=== PATIENT | male | born 1950 | race Caucasian/White ===

== ENCOUNTER 2025-05-06 08:43 | Outpatient (AMB) | payer OTHER, SELFPAY ==
--- OUTSIDE RECORDS SUMMARY | 2025-05-06 08:52 | XMS_ITS | Encounter Summary ---
Author Organization [facility] Address [address] [place] [address] Phone Care Team Providers Care Semiautomatic Stitcher Operator Name Role Phone Cristhian Palmer MD Primary Care Provider [phone] Juan Francisco Morin MD Primary Care Provider + Encounter Details Date Type Department Care Team (Latest Contact Info) Description 12/26/2023 Transcribe Orders [facility] Phleb Sarah 10 [facility] 2nd Floor [place], [place] [phone] Jackie Michael, INDUSTRIAL PHOTOGRAPHER [address] [place] [address] [email or web address] Rectal bleeding (Primary Dx) Social History Tobacco Use Types Packs/Day Years Used Date Smoking Tobacco: Former Smokeless Tobacco: Never Comments:quit @ age 24 Alcohol Use Standard Drinks/Week Comments Yes 4 (1 standard drink = 0.6 oz pur e alcohol) Child or Family Care Answer Date Record ed Do you have problems with on e of the following making it difficult for you to work, study, or receive health care? No 02/14/2023 Education Answer Date Recorded Are you interested in more education? Not on helena e 09/30/2022 Are you concerned about learning? Not on file 09/30/2022 No 09/30/2022 No 09/30/2022 Food Answer Date Recorded Within the past 6 months we worried whether our food would run out before we got money to buy more. Never True 02/14/2023 Within the past 6 months the food we bought just didn't last and we didn't have enough money to get more. Never True Residential Stability Answer Date Recor ded What is your housing situation today? I have pool sing 02/14/2023 How many times have you move d in the past 12 months? Zero (I did not move) 02/14/2023 Paying for Meds Answer Date Recorded Do you have trouble paying for medicines? No 02/14/2023 Paying Utility Bills Answer Date Record ed Do you have trouble paying your heating or elect ricity bill? No 02/14/2023 Transportation Answer Date Recorded Has the lack of transportati on kept you from medical appointments or from getting medications? No 02/14/2023 Digital Access Answer Date Recorded No 02/14/2023 Yes 02/14/2023 Do you have reliable internet access at home? Ye s 02/14/2023 Do you have a device (e.g., phone, tablet, computer) with a working camera? Yes 02/14/2023 Intimate Partner Violence Answer Date R ecorded Denied Basic Needs Not on file 02/14/2023 In the past 12 months have y ou been in a relationship with a person who hurts, threatens, or tries to control you? No 02/14/2023 Worried food would run out Not on file 02/14 In the past 12 months have y ou been in a relationship with a person who hurts, threatens, or tries to control you? No 02/14/2023 Sex and Gender Information Value Date Recorded Sex Assigned at Not on file Legal Sex Male 4:27 PM EST Gender Identity Not on file Sexual Orientation Not on file documented as of this encounter Plan of Treatment Upcoming Encounters Date Type Department Care Team (Late st Contact Info) Description 02/05/2026 8:00 AM EDT [facility] [place] [facility] [address] [place] [address] Cristhian Palmer MD [address] [place] [address] documented as of this encounter Results * CBC and differential (12/26/2023 8:50 AM EDT) WBC 4.12 4.00 - 11.00 K/uL [facility] RBC 4.33 3.90 - 5.69 M/uL [facility] HGB 13.4 12.4 - 17.3 g/dL [facility] HCT 39.8 37.0 - 51.0 % [facility] PLT 191 140 - 430 K/uL [facility] MCV 91.9 78.0 - 97.0 fL [facility] MCH 30.9 25.0 - 33.0 pg [facility] MCHC 33.7 32.0 - 36.0 g/dL [facility] RDW 12.7 11.0 - 15.0 % [facility] MPV 9.4 8.4 - 12.8 fl [facility] DIFF METHOD Auto [facility] NEUTS 57.3 43.0 - 75.0 % [facility] LYMPHS 31.3 18.2 - 47.4 % [facility] MONOS 8.5 4.00 - 11.00 % [facility] EOS 2.2 0.0 - 8.0 % [facility] BASOS 0.2 0.0 - 2.0 % [facility] Granulocytes, immature (%) 0.5 0.0 - 0.9 % [facility] ABSOLUTE NEUTS 2.36 1.80 - 7.70 K/uL [facility] ABSOLUTE LYMPHS 1.29 1.00 - 3.10 K/uL [facility] ABSOLUTE MONOS 0.35 0.20 - 0.80 K/uL [facility] ABSOLUTE EOS 0.09 0.00 - 0.80 K/uL [facility] ABSOLUTE BASOS 0.01 0.00 - 0.09 K/uL [facility] Granulocytes, immature 0.02 0.00 - 0.05 K/uL [facility] Blood 12/26/2023 8:50 AM EDT 12/26/2023 8:53 AM EDT us Jackie Michael INDUSTRIAL PHOTOGRAPHER LAB BLOOD BKR ORDERABLES F inal Result [facility] [address] [place] [address] documented in this encounter Visit Diagnoses Diagnosis Rectal bleeding- Primary Hemorrhage of rectum and anus documented in this encounter Additional Health Concerns Assessment Noted Time PHQ-2 Depression Total Score: 0 06/15/19 24 8:05 AM EST documented as of this encounter Care Teams Semiautomatic Stitcher Operator Relationship Specialty Start Date End Date Cristhian Palmer MD [address] [place] [address] [email or web address] PCP - General Internal Medicine 06/20/23 11/06/24 Juan Francisco Morin MD [address] [place] [address] PCP - General Internal Medicine 11/07/24 documented as of this encounter Additional Source Comments The information contained in this document represents components of the legal health record. It is not the complete legal health record.[facility]
--- OUTSIDE RECORDS SUMMARY | 2025-05-06 08:52 | XMS_ITS | Encounter Summary ---
Author Organization [facility] Address [address] [place] [address] [place] [phone] Phone Care Team Providers Care Hose Tester Name Role Phone Juan Francisco Morin MD Primary Care Provider + Encounter Details Date Type Department Care Team ([facility] st Contact Info) Description 11/07/2024 Procedure Pass [facility] Endoscopy Admitting Dept Virtual Department [address] [place] [address] Social History Tobacco Use Types Packs/Day Years Used Date Smoking Tobacco: Former Cigarettes Smokeless Tobacco: Never Comments:quit @ age 24 [...] Intimate Partner Violence Answer Date R ecorded Are you denied basic needs s uch as food, clothing, or medical care? No 11/07/2024 In the past 12 months have y ou been in a relationship with a person who hurts, threatens, or tries to control you? No 11/07/2024 Are you denied basic needs s uch as food, clothing, or medical care? No 11/07/2024 In the past 12 months have y ou been in a relationship with a person who hurts, threatens, or tries to control you? No 11/07/2024 Sex and Gender Information Value Date Recorded Sex Assigned at Not on file Legal Sex Male 4:27 PM EST Gender Identity Not on file Sexual Orientation Not on file documented as of this encounter Plan of Treatment Upcoming Encounters Date Type Department Care Team (Late st Contact Info) Description 02/05/2026 8:00 AM EDT Office Visit [facility] [place] [facility] [address] [place] [address] Cristhian Palmer MD [address] [place] [address] [email or web address] documented as of this encounter Visit Diagnoses Not on filedocumented in this encounter Additional Health Concerns Assessment Noted Time PHQ-2 Depression Total Score: 0 06/15/19 24 8:05 AM EST documented as of this encounter Care Teams Hose Tester Relationship Specialty Start Date End Date Juan Francisco Morin MD [address] [place] [id number] PCP - General Internal Medicine 11/07/24 documented as of this encounter Additional Source Comments The information contained in this document represents components of the legal health record. It is not the complete legal health record.[facility]
--- OUTSIDE RECORDS SUMMARY | 2025-05-06 08:52 | XMS_ITS | Encounter Summary ---
Author Organization [facility] Address [address] [place] [phone] Phone Care Team Providers Care Winding Lathe Operator Name Role Phone Kristie Mccloud MD Primary Care Provider [email or web address] Montrell Leos MD Primary Care Provider [phone] Cristhian Palmer MD Primary Care Provider [phone] Juan Francisco Morin MD Primary Care Provider + Encounter Details Date Type Department Care Team (Late st Contact Info) Description 04/14/2022 Procedure Pass [facility], [facility] Scan - [address] [phone] Social History Tobacco Use Types Packs/Day Years Used Date Smoking Tobacco: Former Smokeless Tobacco: Never Comments:quit @ age 24 Alcohol Use Standard Drinks/Week Comments Yes 4 (1 standard drink = 0.6 oz pur e alcohol) Sex and Gender Information Value Date Recorded Sex Assigned at Not on file Legal Sex Male 4:27 PM EST Gender Identity Not on file Sexual Orientation Not on file documented as of this encounter Plan of Treatment Upcoming Encounters Date Type Department Care Team (Late st Contact Info) Description 02/05/2026 8:00 AM EDT Office Visit [facility] [address] [place] [address] Cristhian Palmer MD [address] [place], [place] [phone] [email or web address] Aligned documented as of this encounter Visit Diagnoses Not on filedocumented in this encounter Care Teams Winding Lathe Operator Relationship Specialty Start Date End Date Kristie Mccloud MD [email or web address] PCP - General Family Medicine 06/12/17 09/13/22 Montrell Leos MD [address] [place] [phone] [email or web address] [email or web address] PCP - General Internal Medicine 09/14/22 06/19/23 Cristhian Palmer MD [address] [place] [phone] [email or web address] [email or web address] PCP - General Internal Medicine 06/20/23 11/06/24 Juan Francisco Morin MD [address] [place] [phone] PCP - General Internal Medicine 11/07/24 documented as of this encounter Additional Source Comments The information contained in this document represents components of the legal health record. It is not the complete legal health record.[facility]
--- OUTSIDE RECORDS SUMMARY | 2025-05-06 08:52 | XMS_ITS | Clinical Summary ---
Author Organization [facility] Address [address] [place] [address] Phone Care Team Providers Care Casing In Line Feeder Name Role Phone Juan Francisco Morin MD Primary Care Provider + Allergies No known active allergies Medications [id number] ORAL Take by mouth. 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 Prostate cancer 09/21/2022 Overview (02/17/2023): Dx June 2022 psa was elevated in September 24. No metastases, cancer was about to breach prostate itself, radiation october thru December 2022 at [facility]. Hormonal treatment q [address] Jones [facility]. Assessment & Plan (02/17/2023 9:29 AM EDT): Regarding the Flomax we can take this over eventually if needed. I can speak to him later about erectile dysfunction for example in June his upcoming physical. Before the physical we will obtain lipid profile, hemoglobin A1c, screen for hepatitis C and Chem-7. Resolved Problems Problem Noted Date Diagnosed Date Resolved Date Diverticulitis 03/28/2019 02/17/2023 Encounters Date Type Department Care Team Description 03/12/2025 8:39 AM EDT - 03/12/2025 11:59 PM EDT Hospital Encounter [facility] [address] [place] [address] Saroj Dukes MD Discharge Disposition: Home or Self Care 02/04/2025 2:30 PM EDT Office Visit [facility] Internal Medicine [address] [place] [address] Cristhian Palmer MD Routine general medical examination at a health care facility (Primary Dx); Need for influenza vaccination from Last 3 Months Immunizations Immunization Administration Dates Next Due COVID-19 (Pre-03/27) Mehdi Vaccine, rS-Ad26, P F 08/13/2020 COVID-19 (Pre-03/27) Moderna Vaccine, mRNA, PF 1 07/01/2021,03/29/2021 Influenza High-Dose Quadrivalent Preservative Fr ee IM 02/28/2023 Influenza High-Dose Trivalent Preservative Free IM 02/26/2024 Influenza Quadrivalent w/ Preservative IM 2021 Pneumococcal conjugate PCV13 09/24/2018 Pneumococcal polysaccharide PPSV23 03/14/2023, RSV Vaccine (bivalent) 05/01/2023 Td, unspecified formulation 07/12/2004 Tdap 02/28/2023,11/15/2011 Zoster recombinant 05/01/2023,02/28/2023 Family History Relation Status Comments Father Mother Social History Tobacco Use Types Packs/Day Years Used Date Smoking Tobacco: Former Cigarettes Smokeless Tobacco: Never Tobacco Cessation:Counseling Given: Not Answered Comments:quit @ age 24 Alcohol Use Standard [...] 02/14/2023 Digital Access Answer Date Recorded No 02/15/2025 No 02/15/2025 Reliable internet access at home? Not on file 02/15/2025 Device with a working camera? Not on file Intimate Partner Violence Answer Date R ecorded Are you denied basic needs s uch as food, clothing, or medical care? No 01/29/2025 In the past 12 months have y ou been in a relationship with a person who hurts, threatens, or tries to control you? No 01/29/2025 Are you denied basic needs s uch as food, clothing, or medical care? No 01/29/2025 In the past 12 months have y ou been in a relationship with a person who hurts, threatens, or tries to control you? No 01/29/2025 Sex and Gender Information Value Date Recorded Sex Assigned at Not on file Legal Sex Male 4:27 PM EST Gender Identity Not on file Sexual Orientation Not on file Last Filed Vital Signs Vital Sign Reading Time Taken Comments Blood Pressure 122/62 02/04/2025 2:52 PM EDT Pulse 65 02/04/2025 2:52 PM EDT Temperature 36.4 C (97.5 F) 02/04/2025 2:52 PM EDT Respiratory Rate 16 02/04/2025 2:52 PM EDT Oxygen Saturation 96% 02/04/2025 2:52 PM EDT Inhaled Oxygen Concentration - - Weight 85.2 kg (187 lb 12.8 oz) 02/04/2025 2:52 PM EDT Height 177.8 cm (5' 10 ) 02/04/2025 2:52 PM EDT Body Mass Index 26.95 02/04/2025 2:52 PM EDT Plan of Treatment Upcoming Encounters Date Type Department Care Team (Late st Contact Info) Description 02/05/2026 8:00 AM EDT Office Visit [facility] Internal Medicine [address] [place] [address] Cristhian Palmer MD [address] [place] [address] [email or web address] Health Maintenance Due Date Last Done Comments SMOKING Hx and SMOKELESS TOBACCO SCREENING 1965 COLOGUARD 1997 FIT TEST 1997 FOBT 1997 VIRTUAL COLONOSCOPY 1997 INFLUENZA VACCINE (#1) 2025 , 02/28/2023, 03/22/2022 COVID-19 VACCINE ( season) 2025 02/26/2024, 05/01/2022, 03/29/2021, Additional history exists DEPRESSION SCREENING 01/29/2026 01/29/2025 LIPID PANEL 06/13/2028 06/13/2023, 0201/2005, 10/30/2002 SIGMOIDOSCOPY 11/07/2029 11/07/2024, 08/07/2000 Adult Td,Tdap Booster 02/28/2033 02/28/2023 , 11/15/2011, 07/12/2004 COLONOSCOPY 02/05/2034 11/07/2024, 11/12/2009 COLORECTAL CANCER SCREENING 02/05/2034 ABDOMINAL AORTIC ANEURYSM (AAA) SCREENING Completed 04/15/2022, 01/10/2019 PNEUMOCOCCAL VACCINES (50+ years) Completed 03/14/2023, 09/24/2018, 11/15/2011 RSV VACCINE Completed 05/01/2023 ZOSTER VACCINES Completed 05/01/2023, 02/28/2023 HEPATITIS C SCREENING Completed 06/13/2023 HEPATITIS A VACCINES Aged Out No long er eligible based on patient's age to complete this topic HIB VACCINES Aged Out No longer eligi ble based on patient's age to complete this topic MENINGOCOCCAL VACCINES (ACWY) Aged Out No longer eligible based on patient's age to complete this topic MENINGOCOCCAL VACCINES (B) Aged Out N o longer eligible based on patient's age to complete this topic Medical Devices Not on file Procedures Procedure Name Priority Date/Time Associated Diagnosis Comments PSA DIAGNOSTIC (MONITORING) Routine 03/12/2025 8:39 AM EDT Prostate cancer ENDOSCOPY, SIGMOID 11/07/2024 2 :41 PM EDT HM COLONOSCOPY FOR RESULT ENTRY ONLY Routine 11/07/2024 LIPID PANEL Routine 06/13/2023 9:15 AM EST Screening, lipid HEPATITIS C ANTIBODY, QUALITATIVE Routine 06/13/2023 9:15 AM EST Need for hepatitis C screening test CT ABDOMEN/PELVIS WITH CONTRAST Urgent/patient waiting 04/15/2022 12:44 PM EST Diverticulitis from Last 3 Months or Most Recently Relevant to Health Maintenance Results * PSA diagnostic (monitoring) (03/12/2025 8:39 AM EDT) PSA <0.01 0 - 4.00 ng/mL [facility] Comment: Test Methodology Carissa e801 Patient results determined by assays using different manufacturers or methods may not be comparable. Blood 03/12/2025 8:39 AM EDT 03/12/2025 8:42 AM EDT us Saroj Dukes MD LAB BLOOD BKR ORDERABLES Final Result [facility] [address] [place], [place] [id number] * ENDOSCOPY, SIGMOID (11/07/2024 2:41 PM EDT) Narrative Transcriptions Nato Rojas MD - 11/07/2024 2:41 PM EDT [facility] Patient Name: Ronald Zarate Attending MD:: NATO ROJAS MD, Procedure Date: 11/07/2024 2:41 PM Date of : 1950 Age: 74 Admit Type: Outpatient Gender: Male Room: [facility] Referring MD: JUAN FRANCISCO MORIN MD Exam Type: Flexible Sigmoidoscopy Indications: Rectal hemorrhage, Radiation proctitis fortherapy Medications: Propofol per Anesthesia Procedure: Informed consent was obtained from the patientafter discussion of the indications, limitations, alternatives, benefits, and risks of the procedure. Risks specifically discussed include but are not limited to medication reactions, missed lesions, bleeding, perforation, or the need for emergent surgery. Throughout the procedure, the patient's blood pressure, pulse, end-tidal CO2, and oxygensaturations were monitored continuously. The Colonoscope was introduced through the anus and advanced to the sigmoid colon. The flexible sigmoidoscopy was accomplished without difficulty. The patienttolerated the procedure well. The quality of the bowel preparation was adequate. The bowel preparationused was tap water enemas. Complications: No immediate complications. Estimated blood loss:None. Findings: The perianal and digital rectal examinations were normal. Pertinent negatives include normal prostate (size, shape, and consistency). Multiple small diffuse angioectasias with stigmataof recent bleeding were found in the proximal rectumand in the mid rectum. Coagulation for bleedingprevention using argon plasma at 0.8 liters/minute and 35watts was successful. The exam was otherwise normal throughout theexamined colon to the distal/mid sigmoid. Impression: - Multiple recently bleeding colonic angioectasias. Treated with argon plasma coagulation (APC). - No specimens collected. Recommendation: - Repeat flexible sigmoidoscopy PRN for retreatment.Call in 1 monthwith report. NATO ROJAS MD 11/07/2024 3:07:04 PM This report has been signed electronically. Number of Addenda: 0 Note Initiated On: 11/07/2024 2:41 PM Procedure Code(s): --- Professional --- 71662, Sigmoidoscopy, flexible; with control of bleeding, anymethod --- Technical --- 77305, Sigmoidoscopy, flexible; with control of bleeding, anymethod Diagnosis Code(s): --- Professional --- K55.21, Angiodysplasia of colon with hemorrhage K62.5, Hemorrhage of anus and rectum --- Technical --- K55.21, Angiodysplasia of colon with hemorrhage K62.5, Hemorrhage of anus and rectum CPT copyright 2021 [employer]. All rights reserved. The codes documented in this report are preliminary and upon stamp clerk reviewmay be revised to meet current compliance requirements. Procedure Date: 11/07/2024 2:41:[address] [place] [address] Juan Francisco Morin MD GI PROCEDURE ORDERABLES Final Result * COLONOSCOPY FOR RESULT ENTRY ONLY (11/07/2024) Pathologist [facility] Colonoscopy external Historical Provider HEALTH MAINTENANCE Final Result * Hepatitis C antibody, qualitative (06/13/2023 9:15 AM EST) HCV NON-REACTIV E NON-REACTI VE [facility] Blood 06/13/2023 9:15 AM EST 06/13/2023 9:18 AM EST Cristhian Palmer MD LAB BLOOD BKR ORDERABLES Final R esult Performing Organization Address [facility] Co de Phone Number [address] [address] * (ABNORMAL) Lipid panel (06/13/2023 9:15 AM EST) HDL 86 mg/dL [facility] Comment: Interpretation <40 mg/dL: Low HDL cholesterol (major risk factor for CHD) Greater than or equal to 60 mg/dL: High HDL cholesterol ( negative risk factor for CHD) HDL - cholesterol is affected by a number of factors, e.g. smoking, excerise, hormones, sex and age. CHOLESTEROL 237 0 - 240 mg/dL [facility] TRIGLYCERIDES 81 30 - 160 mg/dL [facility] LDL 135(H) 50 - 129 mg/dL [facility] Comment: LDL levels in terms of risk for coronary heart disease: <100 mg/dL: Optimal 100-129 mg/dL: Near or above optimal 130-159 mg/dL: Borderline high 160-189 mg/dL: High >190 mg/dL: Very High CARDIAC RISK RATIO 2.8(L) 3.4 - 5.0 [facility] Blood 06/13/2023 9:15 AM EST 06/13/2023 9:18 AM EST Cristhian Palmer MD LAB BLOOD BKR ORDERABLES Final R esult Performing Organization Address [facility] Co de Phone Number [address] [address] * CT ABDOMEN/PELVIS WITH CONTRAST (04/15/2022 12:44 PM EST) Anatomical Region Laterality Modality Abdomen, Pelvis Computed Tomogra phy 04/15/2022 1:04 PM EST Impressions 04/15/2022 1:19 PM EST 1. Postsurgical changes of the sigmoid colon. Redemonstration of sigmoid diverticulosis without CT evidence of active inflammation. Narrative 04/15/2022 1:[address] ABDOMEN/PELVIS WITH CONTRAST TECHNIQUE: Multidetector-row CT of the abdomen and pelvis was performed after administration of intravenous contrast using tailored dose modulation techniques. Images were reconstructed in the axial, coronal, and sagittal planes. COMPARISON: CT abdomen pelvis 01/10/2019 FINDINGS: Lower Chest: Normal. No consolidation or pleural effusions. Liver: Redemonstration of multiple low-density hepatic lesions the larger of which are in keeping with cysts. The smaller lesions are too small to characterize. Biliary: No biliary ductal dilatation. Spleen: Redemonstration of splenic granulomas. No splenomegaly or focal lesions. Pancreas: No masses or ductal dilatation. Adrenal Glands: No nodules. Kidneys/Ureters: Redemonstration of bilateral renal cortical and parapelvic cysts. There is interval decrease in size of a cyst at the upper pole left kidney now measuring 3.5 cm No solid masses, stones, or hydronephrosis. Bowel: Normal appendix. Redemonstration of sigmoid diverticulosis without CT evidence of mural thickening or lesion. Postsurgical changes demonstrated the sigmoid colon. No distention or wall thickening. Peritoneum/Retroperitoneum: No masses, pneumoperitoneum, or fluid. Lymph Nodes: No lymphadenopathy. Pelvic Organs/Bladder: No mass. Vessels: Atherosclerotic calcification of the aorta and major aortic branch vessels. No abdominal aortic aneurysm. Bones/Soft Tissues: Postsurgical changes of the spine. No destructive osseous lesions. Procedure Note Tonia Shahid MD - 04/15/2022 CT ABDOMEN/PELVIS WITH CONTRAST TECHNIQUE: Multidetector-row CT of the abdomen and pelvis was performedafter administration of intravenous contrast using tailored dosemodulation techniques. Images were reconstructed in the axial, coronal,and sagittal planes. COMPARISON: CT abdomen pelvis 01/10/2019 FINDINGS: Lower Chest: Normal. No consolidation or pleural effusions. Liver: Redemonstration of multiple low-density hepatic lesions the largerof which are in keeping with cysts. The smaller lesions are too small tocharacterize. Biliary: No biliary ductal dilatation. Spleen: Redemonstration of splenic granulomas. No splenomegaly or focallesions. Pancreas: No masses or ductal dilatation. Adrenal Glands: No nodules. Kidneys/Ureters: Redemonstration of bilateral renal cortical andparapelvic cysts. There is interval decrease in size of a cyst at theupper pole left kidney now measuring 3.5 cm No solid masses, stones, orhydronephrosis. Bowel: Normal appendix. Redemonstration of sigmoid diverticulosis withoutCT evidence of mural thickening or lesion. Postsurgical changesdemonstrated the sigmoid colon. No distention or wall thickening. Peritoneum/Retroperitoneum: No masses, pneumoperitoneum, or fluid. Lymph Nodes: No lymphadenopathy. Pelvic Organs/Bladder: No mass. Vessels: Atherosclerotic calcification of the aorta and major aorticbranch vessels. No abdominal aortic aneurysm. Bones/Soft Tissues: Postsurgical changes of the spine. No destructiveosseous lesions. IMPRESSION: 1. Postsurgical changes of the sigmoid colon. Redemonstration of sigmoiddiverticulosis without CT evidence of active inflammation. Lauren Dorantes MD IMG CT ABD/PELVIS Final Resu lt from Last 3 Months or Most Recently Relevant to Health Maintenance Insurance MEDICARE PART A & B [facility] MEDICARE SUPPLEMENT [facility] MEDICARE PART A & B [facility] MEDICARE SUPPLEMENT [facility] MEDICARE PART A & B [facility] MEDICARE SUPPLEMENT [facility] MEDICARE PART A & B [facility] MEDICARE SUPPLEMENT [facility] MEDICARE PART A & B [facility] MEDICARE SUPPLEMENT [facility] MEDICARE PART A & B [facility] MEDICARE SUPPLEMENT [facility] MEDICARE PART A & B Member Subscriber Plan / Payer (Ef fective 2021-) Name:Tessa, Ronald Member ID:[id number] Relation to Subscriber:Self Name:Ronald Zarate Subscriber ID:[id number] Payer ID:[id number] Group ID:Not on file Type:Medicare Address: [employer] [address] MEDICARE SUPPLEMENT MEDICARE PART A & B Member Subscriber Plan / Payer (Ef fective 2021-Present) Name:Tessa, Ronald Member ID:[id number] Relation to Subscriber:Self Name:TessaRonald chapman Subscriber ID:[id number] Payer ID:[id number] Group ID:Not on file Type:Medicare Address: [employer] [address] [place] [id number] [facility] MEDICARE SUPPLEMENT MEDICARE PART A & B Member Subscriber Plan / Payer (Ef fective 2021-Present) Name:Ronald Zarate Member ID:[id number] Relation to Subscriber:Self Name:Ronald Zarate Subscriber ID:[id number] Payer ID:[id number] Group ID:Not on file Type:Medicare Address: [facility] [address] [id number] [facility] MEDICARE SUPPLEMENT Advance Directives For more information, please contact: [phone] (9AM - 5PM [facility], Monday-Monday) * Full Code (Presumed) (Latest Code Status on File) Date Activated Date Inactivated Comments 03/28/2019 4:41 PM 03/29/2019 3:26 PM * Full Code (Presumed) Date Activated Date Inactivated Comments 03/28/2019 10:22 AM 03/28/2019 4:41 PM Care Teams Casing In Line Feeder Relationship Specialty Start Date End Date Juan Francisco Morin MD [address] [place] [address] PCP - General Internal Medicine 11/07/24 Additional Source Comments The information contained in this document represents components of the legal health record. It is not the complete legal health record.[facility]
--- OUTSIDE RECORDS SUMMARY | 2025-05-06 08:52 | XMS_ITS | Encounter Summary ---
Author Organization [facility] Address [address] [place] [address] [place] [address] Phone Care Team Providers Care Machine Fastener Name Role Phone Montrell Leos MD Primary Care Provider [phone] Cristhian Palmer MD Primary Care Provider [phone] Juan Francisco Morin MD Primary Care Provider + Encounter Details Date Type Department Care Team (Late st Contact Info) Description 04/25/2023 Procedure Pass [facility], [facility] [address] [place], [place] [phone] Social History Tobacco Use Types Packs/Day Years [...] Description 02/05/2026 8:00 AM EDT Office Visit [facility] [place] [facility] [address] [place] [address] Cristhian Palmer MD [address] [place] [address] [email or web address] documented as of this encounter Visit Diagnoses Not on filedocumented in this encounter Additional Health Concerns Assessment Noted Time PHQ-2 Depression Total Score: 0 02/15/20 23 9:36 PM EDT documented as of this encounter Care Teams Machine Fastener Relationship Specialty Start Date End Date Montrell Leos MD [address] [place] [address] [email or web address] PCP - General Internal Medicine 09/14/22 06/19/23 Cristhian Palmer MD [address] [place] [address] [email or web address] PCP - General Internal Medicine 06/20/23 11/06/24 Juan Francisco Morin MD [address] [place] [address] PCP - General Internal Medicine 11/07/24 documented as of this encounter Additional Source Comments The information contained in this document represents components of the legal health record. It is not the complete legal health record.[facility]
--- OUTSIDE RECORDS SUMMARY | 2025-05-06 08:52 | XMS_ITS | Encounter Summary ---
Author Organization [facility] Address [address] [place] [address] [place] [address] Phone Care Team Providers Care Resident Medical Officer Name Role Phone Montrell Leos MD Primary Care Provider [phone] Cristhian Palmer MD Primary Care Provider [phone] Juan Francisco Morin MD Primary Care Provider + Reason for Referral * MRI/CAT Scan - Closed Specialty Diagnoses / Procedures Referred By Ana María hartman Referred To Contact Radiology Diagnoses Sensory hearing loss, bilateral Tinnitus, bilateral Procedures MRI Brain Montrell Richmond MD Phone: tel: fax: [email or web address] Referral ID Status Reason Start Date Expiration Date Visits Re quested Visits Authorized [id number] Closed 04/25/2023 1 1 Encounter Details Date Type Department Care Team (Latest Contact Info) Description 04/25/2023 Transcribe Orders Virtual Department [address] [place] [address] Montrell Richmond MD [address] [place] [phone] [email or web address] Sensory hearing loss, bilateral (Primary Dx); Tinnitus, bilateral Social History Tobacco Use Types Packs/Day Years [...] Description 02/05/2026 8:00 AM EDT Office Visit [facility] Internal Medicine [address] [place] [address] Cristhian Palmer MD [address] [place] [address] [email or web address] documented as of this encounter Results * MRI BRAIN (INTERNAL AUDITORY CANAL) WITH AND WITHOUT CONTRAST (05/16/2023 8:06 AM EST) Anatomical Region Laterality Modality Head Magnetic Resonan ce 05/17/2023 7:07 AM EST Impressions 05/17/2023 8:47 PM EST No evidence of retrocochlear abnormality to explain the reported symptoms. Narrative 05/17/2023 8:47 PM EST MRI BRAIN (INTERNAL AUDITORY CANAL) WITH AND WITHOUT CONTRAST Referring clinician's provided indication for this examination in [facility]: Outside Radiology Order; Sensorineural hearing loss, bilateral/ Tinnitus, bilateral TECHNIQUE: Multi-sequence, multi-planar MRI of the brain including high resolution images of the temporal bones was performed before and after intravenous contrast. COMPARISON: None FINDINGS: Internal Auditory Canals, Cerebellopontine Angles, and Intracranial 7th and 8th Nerve Complexes: Normal. No cerebellopontine angle or internal auditory canal mass. Inner Ear Structures: Normal. Preserved signal in the labyrinth. No MRI evidence for an inner ear anomaly. Brain Parenchyma: Normal. No evidence of acute infarct, mass lesion, or hemorrhage. Ventricular System and Extra-Axial Spaces: Normal. No evidence of midline shift or hydrocephalus. Miscellaneous: Polypoid mucosal thickening in the right maxillary sinus. Procedure Note Sarthak Ballesteros MD - 05/17/2023 MRI BRAIN (INTERNAL AUDITORY CANAL) WITH AND WITHOUT CONTRAST Referring clinician's provided indication for this examination in [facility]:Outside Radiology Order; Sensorineural hearing loss, bilateral/ Tinnitus,bilateral TECHNIQUE: Multi-sequence, multi-planar MRI of the brain including highresolution images of the temporal bones was performed before and afterintravenous contrast. COMPARISON: None FINDINGS: Internal Auditory Canals, Cerebellopontine Angles, and Intracranial 7thand 8th Nerve Complexes: Normal. No cerebellopontine angle or internalauditory canal mass. Inner Ear Structures: Normal. Preserved signal in the labyrinth. No MRIevidence for an inner ear anomaly. Brain Parenchyma: Normal. No evidence of acute infarct, mass lesion, orhemorrhage. Ventricular System and Extra-Axial Spaces: Normal. No evidence of midlineshift or hydrocephalus. Miscellaneous: Polypoid mucosal thickening in the right maxillary sinus. IMPRESSION: No evidence of retrocochlear abnormality to explain the reportedsymptoms. Montrell Richmond MD IMG MR HEAD/NECK Final Re sult documented in this encounter Visit Diagnoses Diagnosis Sensory hearing loss, bilateral- Primary Tinnitus, bilateral Unspecified tinnitus Sensory hearing loss, bilateral Tinnitus, bilateral Unspecified tinnitus documented in this encounter Additional Health Concerns Assessment Noted Time PHQ-2 Depression Total Score: 0 02/15/20 23 9:36 PM EDT documented as of this encounter Care Teams Resident Medical Officer Relationship Specialty Start Date End Date Montrell Leos MD [address] [place] [phone] [email or web address] PCP - General Internal Medicine 09/14/22 06/19/23 Cristhian Palmer MD [address] [place] [phone] PCP - General Internal Medicine 06/20/23 11/06/24 Juan Francisco Morin MD [address] [place] [id number] PCP - General Internal Medicine 11/07/24 documented as of this encounter Additional Source Comments The information contained in this document represents components of the legal health record. It is not the complete legal health record.[facility]
--- OUTSIDE RECORDS SUMMARY | 2025-05-06 08:52 | XMS_ITS | Encounter Summary ---
Author Organization [facility] Address [address] [place] [address] Phone Care Team Providers Care Furnace Mason Name Role Phone Kristie Mccloud MD Primary Care Provider [email or web address] Montrell Leos MD Primary Care Provider [phone] Cristhian Palmer MD Primary Care Provider [phone] Juan Francisco Morin MD Primary Care Provider + Encounter Details Date Type Department Care Team (Late st Contact Info) Description 03/28/2019 Procedure Pass OR Admitting Dept - Virtual Department [address] [place] [address] [phone] Social History Tobacco Use Types Packs/Day Years [...] Description 02/05/2026 8:00 AM EDT Office Visit [facility] Medical [facility] Internal Medicine [address] [place] [address] Cristhian Palmer MD [address] [place] [address] [email or web address] documented as of this encounter Visit Diagnoses Not on filedocumented in this encounter Care Teams Furnace Mason Relationship Specialty Start Date End Date Kristie Mccloud MD [email or web address] PCP - General Family Medicine 06/12/17 09/13/22 Montrell Leos MD [address] [place] [address] [email or web address] PCP - General Internal Medicine 09/14/22 06/19/23 Cristhian Palmer MD [address] [place] [address] [email or web address] PCP - General Internal Medicine 06/20/23 11/06/24 Juan Francisco Morin MD [address] [place] [address] PCP - General Internal Medicine 11/07/24 documented as of this encounter Additional Source Comments The information contained in this document represents components of the legal health record. It is not the complete legal health record.[facility]
--- OUTSIDE RECORDS SUMMARY | 2025-05-06 08:52 | XMS_ITS | Encounter Summary ---
Author Organization [facility] Address [address] [place] [address] Phone Care Team Providers Care Secretary Bookkeeper Name Role Phone Kristie Mccloud MD Primary Care Provider [email or web address] Montrell Leos MD Primary Care Provider [phone] Cristhian Palmer MD Primary Care Provider [phone] Juan Francisco Morin MD Primary Care Provider + Encounter Details Date Type Department Care Team (Late st Contact Info) Description 06/28/2017 Procedure Pass OR Admitting Dept - Virtual Department [address] [place] [address] [phone] Social History Tobacco Use Types Packs/Day Years Used Date Smoking Tobacco: Former Smokeless Tobacco: Never Comments:quit @ age 24 Alcohol Use Standard Drinks/Week Comments Yes 0 (1 standard drink = 0.6 oz pur [...] Description 02/05/2026 8:00 AM EDT Office Visit [facility] Medical [facility] Internal Medicine [address] [place] [address] Cristhian Palmer MD [address] [place] [address] [email or web address] documented as of this encounter Visit Diagnoses Not on filedocumented in this encounter Care Teams Secretary Bookkeeper Relationship Specialty Start Date End Date Kristie Mccloud MD [email or web address] PCP - General Family Medicine 06/12/17 09/13/22 Montrell Leos MD [address] [place] [address] [email or web address] PCP - General Internal Medicine 09/14/22 06/19/23 Cristhian Palmer MD [address] [place] [address] [email or web address] PCP - General Internal Medicine 06/20/23 11/06/24 Juan Francisco Morin MD [address] [place] [address] PCP - General Internal Medicine 11/07/24 documented as of this encounter Additional Source Comments The information contained in this document represents components of the legal health record. It is not the complete legal health record.[facility]
--- NOTE | 2025-05-06 09:07 | A.OFFVIS_ITS ---
Vital Signs 05/06/25 09:12 Height 5 ft 10 in Weight 186 lb 4 oz BMI 26.7 BP 128/72 Blood Pressure Location Rt brachial Position Sitting Pulse 64 Pulse Source Pulse Oximeter Pulse Oximetry (%) 97 Oxygen Delivery Method Room Air Intake Visit Reasons: ENP-Sleep Disorder Intake Note: Patient presents LINUX UNIX ADMINISTRATOR Sleep Disorder. No hard time falling/staying sleep. [facility] Yelling in sleep/thrashing in sleep. [facility] needs [facility] PSG Accompanied by: Spouse Allergies No Known Allergies Allergy (Verified 05/06/25 09:14) HPI Comments Details: 75 year old male is a new pt, referred by his respiratory therapist for an evaluation of abnormal sleep behavior. His Shayy helps with history taking. His last sleep study was on 03/2023 and he was diagnosed with sleep apnea. For the last 10 years, he has odd behaviors during night, he starts yelling, screaming, flailing of the arms and thrashing through the night. He is a [place] and his says he flops like a fish on the deck out of water . He snores mildly now with the full face mask on his face and current cpap therapy at [id number]. He goes to bed at 10pm and wakes up at 7am, has multiple arousals, usually at 1am, 3am, and 6am. His has to sleep in the spare bedroom now due to fear of possibly getting hurt in the middle of night due to his violent behavior. He has PLMD and RLS symptoms. He has anxiety and depression managed with medication. He started taking magnesium 400mg po at bedtime however it is ineffective, he still has spasms, twitching, cramps and uncomfortable sensations bilateraly in arms and legs. He tried melatonin however it has been mildly helpful. His memory is stable, he wears bilateral hearing aids. Denies acid reflux, morning headaches, bruxism, seizures, bells palsey, strokes. 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 Sleep disorder Pure hypercholesterolemia, unspecified Pain in foot Pain in left knee CRISTOBAL (obstructive sleep apnea) Physical Exam Vital Signs: Last Vital Signs Pulse 64 05/06/25 09:12 BP 128/72 05/06/25 09:12 Pulse Ox 97 05/06/25 09:12 Oxygen Delivery Method Room Air 05/06/25 09:12 BMI result Body Mass Index 26.7 Const General: cooperative, comfortable and no acute distress Nutritional Appearance: average body habitus Orientation/consciousness: patient oriented x3 HEENT Face and sinus: Yes face symmetric Teeth and gingiva: other (mallampti score is 4) Eyes Pupils: Equal, round and reactive pupils present Neck Neck: Yes full ROM Resp Effort & Inspection: normal respiratory effort and able to speak in complete sentences Neuro Other: good posture gait bilateral arm swing and normal stride hearing aids bilateral General: patient oriented x3 and moves all extremities Cranial nerves: Yes Equal, round and reactive pupils present, Yes Normal acc ommodation reflex present, Yes Normal facial strength present, Yes Ability to bilaterally rotate head present and Yes Ability to bilaterally elevate shoulders present Cognition (Neuro): normal cognition Gait exam (Neuro): Normal gait present Motor exam (neuro): 5/5 motor strength present throughout and Normal motor muscle tone present throughout Deep tendon reflexes (DTR's): Right triceps reflex intensity grade: 2+, Left triceps reflex intensity grade: 2+, Rt Biceps (C5, C6): 2+, Left biceps reflex intensity grade: 2+, Right brachioradialis reflex intensity grade: 2+, Left brachioradialis reflex intensity grade: 2+, Right patellar reflex intensity grade: 2+ and Left patellar reflex intensity grade: 2+ Coordination: ueqgcz-[id number]-cizl test normal Psych Appearance: grossly normal Mental Status: mental status grossly normal Affect: normal affect Thought process: Normal thought process present Thought content: Normal thought content present Results Reviewed Results Reviewed: Requested Labs from [facility] PAB[facility] Morin and sleep study. Assessment & Plan Assessment & Plan (1) RBD (REM behavioral disorder): Code(s): G47.52 - REM sleep behavior disorder Category: Medical (2) Sleep talking: Code(s): G47.8 - Other sleep disorders Category: Medical (3) Periodic limb movements of sleep: Code(s): G47.61 - Periodic limb movement disorder Category: Medical (4) CRISTOBAL on CPAP: Code(s): G47.33 - Obstructive sleep apnea (adult) (pediatric) Category: Medical (5) Excessive daytime sleepiness: Code(s): G47.19 - Other hypersomnia Category: Medical Plan PSG r/o RBD -pt is instructed to use his cpap during the night of the psg in lab study. Labs and sleep study 03/2023 requested from [facility], pt is to continue cpap therapy at [id number] daily and at least for 4 hours. Excessive Daytime Sleepiness and chronically fatigued Melatonin 5mg to 10mg po qpm Magnesium 200-400mg po qpm Will f/u in 3 months. Orders: Orders Vitamin D 25-OH Total Today G47.19 - Other hypersomnia TSH reflex Free T4 Today G47.19 - Other hypersomnia Methylmalonic Acid Today G47.19 - Other hypersomnia, G47.9 - Sleep disorder, unspecified, R53.83 - Other fatigue Homocysteine Today G47.19 - Other hypersomnia, G47.9 - Sleep disorder, unspecified, R53.83 - Other fatigue Magnesium Today G47.19 - Other hypersomnia Ferritin Today G47.19 - Other hypersomnia RT PSG in-lab sleep study 05/06/25 G47.52 - REM sleep behavior disorder, G47.8 - Other sleep disorders Vitamin B12 and Folate Today G47.19 - Other hypersomnia Comprehensive Met. Panel Today G47.19 - Other hypersomnia Complete Blood Count no Diff Today G47.19 - Other hypersomnia Patient Instructions: Please complete the following fasting labs to rule out deficiencies. CBC/CMP/ B12/ Vit D/ TSH/ Homocysteine and MMA/ Ferritin. Sleep Hygiene provided: set a scheduled bedtime and wake time to help regulate the circadian rhythm and balance the release of pituitary hormones. Sleep in a dark room, temperatures below 68 degrees, and no devices n bed. Limit caffeinated products 6 hours prior to bed, and limit fluids 2-4 hours prior to bed. Gentle night yoga, diffusing essential oils, and playing soft music can be relaxing. Coding Level of Care Code New Pt Level 4 (34250) Diagnoses RBD (REM behavioral disorder) G47.52 Sleep talking G47.8 Periodic limb movements of sleep G47.61 CRISTOBAL on CPAP G47.33 Excessive daytime sleepiness G47.19 Sleep Questionnaire Difficulty falling asleep: No Difficulty staying asleep?: No Number of arousals: 2-3x Snoring: Yes Witnessed apneas: No Gasping arousals: No Nocturia: No GERD: Yes (aloe) Vivid dreams: No Acting out dreams: Yes Abnormal behavior in sleep: Yes Abnormal movements in sleep: Yes Morning headaches: No Excessive daytime sleepiness: No Daytime naps: No Restless legs: Yes Hallucinations: No Sleep paralysis: No Drop attacks: No Sleep Study: Yes CPAP: Yes
[2025-05-06 09:12] VITALS: BP 128/72; PULSE 64; O2SAT 97; BMI 26.7
== END 2025-05-06 09:52 | disposition home or self-care (01) ==
LOC: HO.HSMS 08:43
PROVIDERS: PCP Internal Medicine; Visit Provider Physician Assistant Medical
DX: G47.52 REM sleep behavior disorder (principal); G47.8 Other sleep disorders; G47.61 Periodic limb movement disorder; G47.33 Obstructive sleep apnea (adult) (pediatric); G47.19 Other hypersomnia
CPT/HCPCS: 99204

== ENCOUNTER → 2025-05-06 08:43 | Outpatient (BNVA) | payer OTHER, SELFPAY | PROVIDERS: PCP Internal Medicine; Visit Provider Physician Assistant Medical | DX: G47.33 Obstructive sleep apnea (adult) (pediatric) (principal); G47.52 REM sleep behavior disorder; G47.61 Periodic limb movement disorder; G47.19 Other hypersomnia; R53.82 Chronic fatigue, unspecified; Z99.89 Dependence on other enabling machines and devices | CPT/HCPCS: 99202 ==

== ENCOUNTER → 2025-05-19 20:30 | Outpatient (REF) | payer OTHER, SELFPAY ==
--- OUTSIDE RECORDS SUMMARY | 2025-05-19 22:54 | XMS_ITS | Clinical Summary ---
Author Organization [facility] Address [address] [place] [address] Phone Care Team Providers Care Journeyman Molder Name Role Phone Juan Francisco Morin MD Primary Care Provider + Allergies No known active allergies Medications [id number] ORAL Take by mouth. Active Medication-Free Text [...] itself, radiation october thru December [address] [facility]. Hormonal treatment q [address] Jones [facility] urology. Assessment & Plan (02/17/2023 9:29 AM [...] 11:59 PM EDT Hospital Encounter [facility] [address] [place] [address] Saroj Dukes MD Discharge Disposition: Home or Self Care from Last 3 Months Immunizations Immunization Administration [...] your housing situation today? I have pool vargas 02/14/2023 How many times have you move [...] Description 02/05/2026 8:00 AM EDT Office Visit [facility] Internal Medicine [address] [place] [address] Cristhian Palmer MD [address] [place] [address] [email or web address] Maintenance Due Date Last Done Comments SMOKING Hx and SMOKELESS TOBACCO SCREENING 1965 COLOGUARD 1997 FIT TEST 1997 FOBT 1997 VIRTUAL COLONOSCOPY 1997 INFLUENZA VACCINE (#1) 2025 , 02/28/2023, 03/22/2022 COVID-19 VACCINE ( season) 2025 02/26/2024, 05/01/2022, 03/29/2021, Additional history exists DEPRESSION SCREENING 01/29/2026 01/29/2025 LIPID PANEL 06/13/2028 06/13/2023, 02/01/2005, 10/30/2002 SIGMOIDOSCOPY 11/07/2029 11/07/2024, 08/07/2000 Adult Td,Tdap [...] AM EDT Prostate cancer ENDOSCOPY, SIGMOID 11/07/2024 2: 41 PM EDT HM COLONOSCOPY FOR RESULT ENTRY [...] EDT) PSA <0.01 0 - 4.00 ng/mL [facility] Comment: Test Methodology Carissa [id number] Patient results determined by assays using different manufacturers or methods may not be comparable. Blood 03/12/2025 8:39 AM EDT 03/12/2025 8:42 AM EDT us Saroj Dukes MD LAB BLOOD BKR ORDERABLES Final Result [facility] [address] [place] [address] * ENDOSCOPY, SIGMOID (11/07/2024 2:41 PM EDT) Narrative Transcriptions Nato Rojas MD - 11/07/2024 2:41 PM EDT [facility] Patient Name: Ronald Zarate Attending MD:: NATO ROJAS MD, Procedure Date: 11/07/2024 2:41 PM Date of : 1950 Age: 74 Admit Type: Outpatient Gender: Male Room: [place] [address] Referring MD: JUAN FRANCISCO MORIN MD Exam [...] 2:41 PM Procedure Code(s): --- Professional --- 13336, Sigmoidoscopy, flexible; with control of bleeding, anymethod --- Technical --- 99807, Sigmoidoscopy, flexible; with control of bleeding, anymethod Diagnosis Code(s): --- Professional --- K55.21, Angiodysplasia of colon with hemorrhage K62.5, Hemorrhage of anus and rectum --- Technical --- K55.21, Angiodysplasia of colon with hemorrhage K62.5, Hemorrhage of anus and rectum CPT copyright 2021 [employer]. All rights reserved. The codes documented in this report are preliminary and upon dry plasterer helper reviewmay be revised to meet current compliance requirements. Procedure Date: 11/07/2024 2:41:[address] [place] [address] Juan Francisco Morin MD GI PROCEDURE ORDERABLES Final Result * COLONOSCOPY FOR RESULT ENTRY ONLY (11/07/2024) Colonoscopy external Historical Provider HEALTH MAINTENANCE Final Result * Hepatitis C antibody, qualitative (06/13/2023 9:15 AM EST) HCV NON-REACTIV E NON-REACTI VE [facility] Blood 06/13/2023 9:15 AM EST 06/13/2023 9:18 AM EST Cristhian Palmer MD LAB BLOOD BKR ORDERABLES Final R esult [address] [address] * (ABNORMAL) Lipid panel (06/13/2023 9:15 AM EST) HDL 86 mg/dL [facility] Comment: Interpretation <40 mg/dL: Low HDL cholesterol (major risk factor for CHD) Greater than or equal to 60 mg/dL: High HDL cholesterol ( negative risk factor for CHD) HDL - cholesterol is affected by a number of factors, e.g. smoking, excerise, hormones, sex and age. CHOLESTEROL 237 0 - 240 mg/dL [facility] TRIGLYCERIDES 81 30 - 160 mg/dL [facility] LDL 135(H) 50 - 129 mg/dL [facility] Comment: LDL levels in terms of risk for coronary heart disease: <100 mg/dL: Optimal 100-129 mg/dL: Near or above optimal 130-159 mg/dL: Borderline high 160-189 mg/dL: High >190 mg/dL: Very High CARDIAC RISK RATIO 2.8(L) 3.4 - 5.0 C [facility] Blood 06/13/2023 9:15 AM EST 06/13/2023 9:18 AM EST us Cristhian Palmer MD LAB BLOOD BKR ORDERABLES Final R esult [facility] [address] [place] [address] * CT ABDOMEN/PELVIS WITH CONTRAST (04/15/2022 12:44 [...] sigmoiddiverticulosis without CT evidence of active inflammation. us Lauren Dorantes MD IMG CT ABD/PELVIS Final Resu lt from Last 3 Months or Most Recently Relevant to Health Maintenance Insurance [place] PART A [place] [id number] [facility] MEDICARE SUPPLEMENT [facility] B [facility] MEDICARE SUPPLEMENT [facility] & B [facility] MEDICARE SUPPLEMENT [facility] & B [facility] MEDICARE SUPPLEMENT [facility] MED[facility] & B [facility] MEDICARE SUPPLEMENT [facility] MED[facility] & B [facility] MEDICARE SUPPLEMENT MEDICARE PART A & B MEDICARE SUPPLEMENT MEDICARE PART A & B MEDICARE SUPPLEMENT MEDICARE PART A & B [facility] MEDICARE SUPPLEMENT Advance Directives For more information, please contact: [phone] (9AM - 5PM [facility], Monday-Monday) * Full Code (Presumed) (Latest Code Status on File) Date Activated Date Inactivated Comments 03/28/2019 4:41 PM 03/29/2019 3:26 PM * Full Code (Presumed) Date Activated Date Inactivated Comments 03/28/2019 10:22 AM 03/28/2019 4:41 PM Care Teams Journeyman Molder Relationship Specialty Start Date End Date Juan Francisco Morin MD [address] [place] [address] PCP - General Internal Medicine 11/07/24 Additional Source Comments The information contained in this document represents components of the legal health record. It is not the complete legal health record.[facility]
--- OUTSIDE RECORDS SUMMARY | 2025-05-19 22:54 | XMS_ITS | Encounter Summary ---
Author Organization [facility] Address [address] [place] [address] [place] [address] Phone Care Team Providers Care Hydro Station Supervisor Name Role Phone Montrell Leos MD Primary Care Provider [phone] Cristhian Palmer MD Primary Care Provider [phone] Juan Francisco Morin MD Primary Care Provider + Encounter Details Date Type Department Care Team (Late st Contact Info) Description 04/25/2023 Procedure Pass [facility] [address] [place], [place] [phone] Social History Tobacco Use Types Packs/Day Years [...] Description 02/05/2026 8:00 AM EDT Office Visit [facility] Internal Medicine [address] [place] [address] Cristhian Palmer MD [address] [place] [address] [email or web address] documented as of this encounter Visit Diagnoses Not on filedocumented in this encounter Additional Health Concerns Assessment Noted Time PHQ-2 Depression Total Score: 0 02/15/20 23 9:36 PM EDT documented as of this encounter Care Teams Hydro Station Supervisor Relationship Specialty Start Date End Date Montrell Leos MD [address] [place] [address] [email or web address] PCP - General Internal Medicine 09/14/22 06/19/23 Cristhian Palmer MD [address] [place] [address] [email or web address] PCP - General Internal Medicine 06/20/23 11/06/24 Juan Francisco Morin MD [address] [place] [address] PCP - General Internal Medicine 11/07/24 documented as of this encounter Additional Source Comments The information contained in this document represents components of the legal health record. It is not the complete legal health record.[facility]
--- OUTSIDE RECORDS SUMMARY | 2025-05-19 22:54 | XMS_ITS | Encounter Summary ---
Author Organization [facility] Address [address] [place] [address] Phone Care Team Providers Care Contract Loader Name Role Phone Kristie Mccloud MD Primary Care Provider [email or web address] Montrell Leos MD Primary Care Provider [phone] Cristhian Palmer MD Primary Care Provider [phone] Juan Francisco Morin MD Primary Care Provider + Encounter Details Date Type Department Care Team (Late st Contact Info) Description 06/28/2017 Procedure Pass OR Admitting Dept - Virtual Department [address] [place] [address] [phone] Social History Tobacco Use Types Packs/Day Years [...] Description 02/05/2026 8:00 AM EDT Office Visit [facility] Internal Medicine [address] [place] [address] Cristhian Palmer MD [address] [place] [address] [email or web address] documented as of this encounter Visit Diagnoses Not on filedocumented in this encounter Care Teams Contract Loader Relationship Specialty Start Date End Date Kristie Mccloud MD [email or web address] PCP - General Family Medicine 06/12/17 09/13/22 Montrell Leos MD [address] [place] [address] [email or web address] PCP - General Internal Medicine 09/14/22 06/19/23 Cristhian Palmer MD [address] [place] [address] [email or web address] PCP - General Internal Medicine 06/20/23 11/06/24 Juan Francisco Morin MD [address] [place] [address] PCP - General Internal Medicine 11/07/24 documented as of this encounter Additional Source Comments The information contained in this document represents components of the legal health record. It is not the complete legal health record.[facility]
--- OUTSIDE RECORDS SUMMARY | 2025-05-19 22:54 | XMS_ITS | Encounter Summary ---
Author Organization [facility] Address [address] [place] [address] Phone Care Team Providers Care Product Applications Scientist Name Role Phone Kristie Mccloud MD Primary Care Provider [email or web address] Montrell Leos MD Primary Care Provider [phone] Cristhian Palmer MD Primary Care Provider [phone] Juan Francisco Morin MD Primary Care Provider + Encounter Details Date Type Department Care Team (Late st Contact Info) Description 04/14/2022 Procedure Pass [facility], [facility] - [address] [phone] Social History Tobacco Use Types Packs/Day Years [...] Description 02/05/2026 8:00 AM EDT Office Visit [facility] Internal Medicine [address] [place] [address] Cristhian Palmer MD [address] [place], [place] [phone] [email or web address] documented as of this encounter Visit Diagnoses Not on filedocumented in this encounter Care Teams Product Applications Scientist Relationship Specialty Start Date End Date Kristie Mccloud MD [email or web address] PCP - General Family Medicine 06/12/17 09/13/22 Montrell Leos MD [address] [place] [address] [email or web address] PCP - General Internal Medicine 09/14/22 06/19/23 Cristhian Palmer MD [address] [place] [address] [email or web address] PCP - General Internal Medicine 06/20/23 11/06/24 Juan Francisco Morin MD [address] [place] [phone] PCP - General Internal Medicine 11/07/24 documented as of this encounter Additional Source Comments The information contained in this document represents components of the legal health record. It is not the complete legal health record.[facility]
--- OUTSIDE RECORDS SUMMARY | 2025-05-19 22:54 | XMS_ITS | Encounter Summary ---
Author Organization [facility] Address [address] [place] [phone] Phone Care Team Providers Care Access Spec Name Role Phone Cristhian Palmer MD Primary Care Provider [phone] Juan Francisco Morin MD Primary Care Provider + Encounter Details Date Type Department Care Team (Latest Contact Info) Description 12/26/2023 Transcribe Orders [facility] Phleb Sarah 10 [facility] 2nd Floor [place], [place] [id number] Jackie Michael, COTTON INSPECTOR [address] [place] [address] [email or web address] Rectal bleeding (Primary Dx) Social History Tobacco [...] Description 02/05/2026 8:00 AM EDT [facility] [place] [facility] [address] [place] [address] Cristhian Palmer MD [address] [place] [address] documented as of this encounter Results * CBC and differential (12/26/2023 8:50 AM EDT) WBC 4.12 4.00 - 11.00 K/uL [facility] RBC 4.33 3.90 - 5.69 M/uL [facility] HGB 13.4 12.4 - 17.3 g/dL [facility] HCT 39.8 37.0 - 51.0 % [facility] PLT 191 140 - 430 K/uL [facility] MCV 91.9 78.0 - 97.0 fL [facility] MCH 30.9 25.0 - 33.0 pg [facility] MCHC 33.7 32.0 - 36.0 g/dL [facility] RDW 12.7 11.0 - 15.0 % [facility] MPV 9.4 8.4 - 12.8 fl [facility] DIFF [employer] [facility] NEUTS 57.3 43.0 - 75.0 % [facility] LYMPHS 31.3 18.2 - 47.4 % [facility] MONOS 8.5 4.00 - 11.00 % [facility] EOS 2.2 0.0 - 8.0 % [facility] BASOS 0.2 0.0 - 2.0 % [facility] Granulocytes, immature (%) 0.5 0.0 - 0.9 % [facility] ABSOLUTE NEUTS 2.36 1.80 - 7.70 K/uL [facility] ABSOLUTE LYMPHS 1.29 1.00 - 3.10 K/uL [facility] ABSOLUTE MONOS 0.35 0.20 - 0.80 K/uL [facility] ABSOLUTE EOS 0.09 0.00 - 0.80 K/uL [facility] ABSOLUTE BASOS 0.01 0.00 - 0.09 K/uL [facility] Granulocytes, immature 0.02 0.00 - 0.05 K/uL [facility] Blood 12/26/2023 8:50 AM EDT 12/26/2023 8:53 AM EDT us Jackie Michael COTTON INSPECTOR LAB BLOOD BKR ORDERABLES F inal Result [facility] [address] [place] [address] documented in this encounter Visit Diagnoses Diagnosis Rectal bleeding- Primary Hemorrhage of rectum and anus documented in this encounter Additional Health Concerns Assessment Noted Time PHQ-2 Depression Total Score: 0 06/15/19 24 8:05 AM EST documented as of this encounter Care Teams Access Spec Relationship Specialty Start Date End Date Cristhian Palmer MD [address] [place] [address] [email or web address] PCP - General Internal Medicine 06/20/23 11/06/24 Juan Francisco Morin MD [address] [place] [address] PCP - General Internal Medicine 11/07/24 documented as of this encounter Additional Source Comments The information contained in this document represents components of the legal health record. It is not the complete legal health record.[facility]
--- OUTSIDE RECORDS SUMMARY | 2025-05-19 22:54 | XMS_ITS | Encounter Summary ---
Author Organization [facility] Address [address] [place] [address] [place] [address] Phone Care Team Providers Care Spiral Winding Machine Helper Name Role Phone Juan Francisco Morin MD Primary Care Provider + Encounter Details Date Type Department Care Team ([facility] st Contact Info) Description 11/07/2024 Procedure Pass [facility] Endoscopy Admitting Dept Virtual Department [address] [place] [address] Social History Tobacco Use Types Packs/Day Years [...] Description 02/05/2026 8:00 AM EDT Office Visit [facility] [place] [facility] [address] [place] [address] Cristhian Palmer MD [address] [place] [address] [email or web address] documented as of this encounter Visit Diagnoses Not on filedocumented in this encounter Additional Health Concerns Assessment Noted Time PHQ-2 Depression Total Score: 0 06/15/19 24 8:05 AM EST documented as of this encounter Care Teams Spiral Winding Machine Helper Relationship Specialty Start Date End Date Juan Francisco Morin MD [address] [place] [id number] PCP - General Internal Medicine 11/07/24 documented as of this encounter Additional Source Comments The information contained in this document represents components of the legal health record. It is not the complete legal health record.[facility]
--- OUTSIDE RECORDS SUMMARY | 2025-05-19 22:54 | XMS_ITS | Encounter Summary ---
Author Organization [facility] Address [address] [place] [address] Phone Care Team Providers Care Kindergarten Prep Teacher Name Role Phone Kristie Mccloud MD Primary Care Provider [email or web address] Montrell Leos MD Primary Care Provider [phone] Cristhian Palmer MD Primary Care Provider [phone] Juan Francisco Morin MD Primary Care Provider + Encounter Details Date Type Department Care Team (Late st Contact Info) Description 03/28/2019 Procedure Pass [place] Admitting Dept - Virtual Department [address] [place] [address] [id number] Social History Tobacco Use Types Packs/Day Years [...] Description 02/05/2026 8:00 AM EDT Office Visit [facility] Internal Medicine [address] [place] [address] Cristhian Palmer MD [address] [place] [address] [email or web address] documented as of this encounter Visit Diagnoses Not on filedocumented in this encounter Care Teams Kindergarten Prep Teacher Relationship Specialty Start Date End Date Kristie Mccloud MD [email or web address] PCP - General Family Medicine 06/12/17 09/13/22 Montrell Leos MD [address] [place] [phone] [email or web address] PCP - General Internal Medicine 09/14/22 06/19/23 Cristhian Palmer MD [address] [place] [address] [email or web address] PCP - General Internal Medicine 06/20/23 11/06/24 Juan Francisco Morin MD [address] [place] [phone] PCP - General Internal Medicine 11/07/24 documented as of this encounter Additional Source Comments The information contained in this document represents components of the legal health record. It is not the complete legal health record.[facility]
--- OUTSIDE RECORDS SUMMARY | 2025-05-19 22:54 | XMS_ITS | Encounter Summary ---
Author Organization [facility] Address [address] [place] [address] [place] [phone] Phone Care Team Providers Care Gluing Machine Offbearer Name Role Phone Montrell Leos MD Primary Care Provider [phone] Cristhian Palmer MD Primary Care Provider [phone] Juan Francisco Morin MD Primary Care Provider + Reason for Referral * MRI/CAT Scan - Closed Specialty Diagnoses / Procedures Referred By Ana María hartman Referred To Contact Radiology Diagnoses Sensory hearing loss, bilateral Tinnitus, bilateral Procedures MRI Brain Montrell Richmond MD Phone: tel: fax: [email or web address] Referral ID Status Reason Start Date Expiration Date Visits Re quested Visits Authorized [id number] Closed 04/25/2023 1 1 Encounter Details Date Type Department Care Team (Latest Contact Info) Description 04/25/2023 Transcribe Orders Virtual Department [address] [place] [address] Montrell Richmond MD [address] [place] [phone] [email or web address] Sensory hearing loss, bilateral (Primary Dx); Tinnitus, [...] Description 02/05/2026 8:00 AM EDT Office Visit [facility] Internal Medicine [address] [place] [address] Cristhian Palmer MD [address] [place] [address] [email or web address] documented as of this encounter Results * [...] clinician's provided indication for this examination in [facility]: Outside Radiology Order; Sensorineural hearing loss, bilateral/ [...] clinician's provided indication for this examination in [facility]:Outside Radiology Order; Sensorineural hearing loss, bilateral/ Tinnitus,bilateral [...] documented as of this encounter Care Teams Gluing Machine Offbearer Relationship Specialty Start Date End Date Montrell Leos MD [address] [place] [phone] [email or web address] PCP - General Internal Medicine 09/14/22 06/19/23 Cristhian Palmer MD [address] [place] [id number] PCP - General Internal Medicine 06/20/23 11/06/24 Juan Francisco Morin MD [address] [place] [phone] PCP - General Internal Medicine 11/07/24 documented as of this encounter Additional Source Comments The information contained in this document represents components of the legal health record. It is not the complete legal health record.[facility]
== END ==
LOC: HO.SL 20:30
PROVIDERS: PCP Internal Medicine; Visit Provider Physician Assistant Medical
DX: G47.8 Other sleep disorders (principal); G47.52 REM sleep behavior disorder
CPT/HCPCS: 95810

== ENCOUNTER → 2025-05-19 21:13 | Outpatient (BNV) | payer OTHER, SELFPAY | PROVIDERS: PCP Internal Medicine; Visit Provider Internal Medicine | DX: G47.52 REM sleep behavior disorder (principal) | CPT/HCPCS: 95810 ==